=== PATIENT | female | born 1995 | race African-American/Black ===

== ENCOUNTER 2016-12-14 10:53 | Emergency (ER) | payer SELFPAY ==
[~2016-12-14] VITALS: Ht 157.5 cm; Wt 50.0 kg
[2016-12-14 10:55] VITALS: BP 116/65; PULSE 110; RESP 24; TEMP 98.2; O2SAT 93
--- NOTE | 2016-12-14 11:08 | PD ---
HPI Chief Complaint: Abdominal Pain Time Seen by Provider: 11:07 Travel History International Travel<30 days: No Contact w/Intl Traveler<30days: No Traveled to known affect area: No History of Present Illness HPI 21-year-old female came to the emergency room with history of being sick for past couple days with "flulike symptoms"which upon asking she described them as fever, headache some sneezing and runny nose. Her roommate was diagnosed with influenza. However this morning when she woke up she started getting severe lower abdominal pain. Seems quite uncomfortable because of the pain. She has been nauseous and vomited couple times yesterday and before. No vomiting today. The pain in her suprapubic area. She denied of any foul smelling discharge. Said there was a chance she could be . She was walking hunched over since standing straight walking she said was hurting. Vital signs were otherwise stable. [facility] Past Medical History Narrative Medical List of her past medical history as reviewed from the nursing note. Anemia: Yes Asthma: Yes ?: Unknown LMP: 11/21/16 Social History Alcohol Use: No (DENIES) Tobacco Use: No Substance Use: No (DENIES) Allergies-Medications (Allergen,Severity, Reaction): Coded Allergies: No Known Allergies (Unverified , 12/14/16) Comments No known drug allergies. Reported Meds & Prescriptions Reported Meds & Active Scripts Active Sulfamethoxazole-Trimethoprim Liq 200-40 Mg/5 Ml Susp 20 Ml PO Q12H 7 Days Sulfamethoxazole-Trimethoprim Liq 200-40 Mg/5 Ml Susp 20 Ml PO ONCE Narrative Medication List of her home medications reviewed from the nursing note. Review of Systems Except as stated in HPI: all other systems reviewed are Neg Physical Exam Narrative GENERAL: Awake, alert, anxious, moderate to significant distress SKIN: Warm and dry. HEAD: Atraumatic. Normocephalic. EYES: Pupils equal and round. No scleral icterus. No injection or drainage. ENT: No nasal bleeding or discharge. Mucous membranes pink and moist. NECK: Trachea midline. No JVD. CARDIOVASCULAR: Regular rate and rhythm. No murmur appreciated. RESPIRATORY: No accessory muscle use. Clear to auscultation. Breath sounds equal bilaterally. GASTROINTESTINAL: Abdomen soft, non-tender, nondistended. Hepatic and splenic margins not palpable. MUSCULOSKELETAL: No obvious deformities. No clubbing. No cyanosis. No edema. NEUROLOGICAL: Awake and alert. No obvious cranial nerve deficits. Motor grossly within normal limits. Normal speech. PSYCHIATRIC: Appropriate mood and affect; insight and judgment normal. Data Data Last Documented VS Vital Signs Date Time Temp Pulse Resp B/P Pulse Ox O2 Delivery O2 Flow Rate FiO2 12/14/16 12:30 77 18 108/55 100 Room Air 12/14/16 10:55 98.2 Orders Complete Blood Count With Diff (12/14/16 11:11) Lipase (12/14/16 11:11) Urinalysis - C+S If Indicated (12/14/16 11:11) Iv Access Insert/Monitor (12/14/16 11:11) Ecg Monitoring (12/14/16 11:11) Oximetry (12/14/16 11:11) Ondansetron Inj (Zofran Inj) (12/14/16 11:15) Sodium Chlor 0.9% 1000 Ml Inj (Ns 1000 M (12/14/16 11:11) Sodium Chloride 0.9% Flush (Ns Flush) (12/14/16 11:15) Ketorolac Inj (Toradol Inj) (12/14/16 11:15) Ed Urine Pregnancytest Poc (12/14/16 11:11) Influenzae A/B Antigen (12/14/16 11:12) Nitrofurantoin Monohyd Macrocr (Macrobid (12/14/16 12:30) Sulfamet-Trimet 800-160 Mg Liq (Bactrim (12/14/16 12:30) Labs Laboratory Tests Test 12/14/16 12/14/16 11:20 11:23 White Blood Count 5.0 TH/MM3 Red Blood Count 4.12 MIL/MM3 Hemoglobin 11.2 GM/DL Hematocrit 33.1 % Mean Corpuscular Volume 80.3 FL Mean Corpuscular Hemoglobin 27.2 PG Mean Corpuscular Hemoglobin 33.9 % Concent Red Cell Distribution Width 14.4 % Platelet Count 333 TH/MM3 Mean Platelet Volume 7.7 FL Neutrophils (%) (Auto) 68.7 % Lymphocytes (%) (Auto) 22.5 % Monocytes (%) (Auto) 7.6 % Eosinophils (%) (Auto) 0.7 % Basophils (%) (Auto) 0.5 % Neutrophils # (Auto) 3.4 TH/MM3 Lymphocytes # (Auto) 1.1 TH/MM3 Monocytes # (Auto) 0.4 TH/MM3 Eosinophils # (Auto) 0.0 TH/MM3 Basophils # (Auto) 0.0 TH/MM3 CBC Comment DIFF FINAL Differential Comment Lipase 126 U/L Urine Color YELLOW Urine Turbidity CLOUDY Urine pH 5.5 Urine Specific Gardner 1.034 Urine Protein 30 mg/dL Urine Glucose (UA) NEG mg/dL Urine Ketones TRACE mg/dL Urine Occult Blood LARGE Urine Nitrite NEG Urine Bilirubin NEG Urine Urobilinogen LESS THAN 2.0 MG/DL Urine Leukocyte Esterase TRACE Urine RBC 5 /hpf Urine Amorphous Sediment MOD Urine Bacteria FEW /hpf Urine Mucus MANY /lpf Microscopic Urinalysis Comment CULT NOT INDICATED MDM Medical Decision Making Medical Screen Exam Complete: Yes Emergency Medical Condition: Yes Medical Record Reviewed: Yes Differential Diagnosis UTI, ruptured ovarian cyst, PID Narrative Course 12:27 PM test results are within normal limit. Patient has a grossly infected UTI. I've ordered initially Macrobid but patient wanted something and liquids since she cannot swallow pills. I've changed to liquid Bactrim. I will discharge her home on liquid Bactrim. Patient was medicated for pain with Toradol IV. Seems little more comfortable now. Procedures EKG Prior to Arrival: No Diagnosis Primary Impression: UTI (urinary tract infection) Qualified Code: N39.0 - Urinary tract infection without hematuria, site unspecified Additional Impression: Pelvic pain Referrals: Primary Care Physician 3 days Additional Instructions: Please return to the ER if the condition worsens or any other new concerns. Otherwise follow-up with your primary care. Take the medications as per the prescription direction. Med/Other Pt SpecificInfo: Prescription(s) given Scripts Sulfamethoxazole-Trimethoprim Liq 200-40 Mg/5 Ml Susp20 Ml PO Q12H 7 Days Ref 0 Prov:Ishmael Rouse MD 12/14/16 Sulfamethoxazole-Trimethoprim Liq 200-40 Mg/5 Ml Susp20 Ml PO ONCE #20 ML Ref 0 Prov:sIhmael Rouse MD 12/14/16 Disposition: 01 DISCHARGE HOME Condition: Stable Ishmael Rouse MD Dec 14, 2016 11:08
[2016-12-14] MEDS ORDERED: SODIUM CHLOR 0.9% 1000 ML INJ 1,000 ML IV SCH (11:11)
[2016-12-14] MEDS ORDERED: KETOROLAC TROMETHAMINE 30 MG/ML (IVP) VIAL IVP ONE (11:15)
[2016-12-14] MEDS ORDERED: ONDANSETRON HCL 4 MG/2 ML VIAL IVP ONE (11:15)
[2016-12-14] MEDS ORDERED: SODIUM CHLORIDE 0.9% FLUSH 5 ML FLUSH IVF PRN (11:15)
[2016-12-14 11:38] LABS: AUTOMATED NEUTROPHIL # 3.4 TH/MM3 (1.8-7.7); BASOPHIL % 0.5 % (0.0-2.0); EOSINOPHIL % 0.7 % (0.0-4.0); HEMATOCRIT 33.1 % (35.0-46.0); HEMO FLAGS DIFF FINAL; LYMPH % 22.5 % (9.0-44.0); LYMPHOCYTE # 1.1 TH/MM3 (1.0-4.8); MEAN CELL VOLUME 80.3 FL (80.0-100.0); MEAN CORPUSCULAR HEMOGLOBIN 27.2 PG (27.0-34.0); MEAN CORPUSCULAR HGB CONC 33.9 % (32.0-36.0); MONO % 7.6 % (0.0-8.0); NEUT % 68.7 % (16.0-70.0); PLATELET COUNT 333 TH/MM3 (150-450); RED BLOOD COUNT 4.12 MIL/MM3 (4.00-5.30); RED CELL DISTRIBUTION WIDTH 14.4 % (11.6-17.2)
[2016-12-14 11:49] LABS: BACTERIA, URINE FEW /hpf; BLOOD, URINE LARGE (NEG); COMMENT (UR) CULT NOT INDICATED; CULTURE IF INDICATED CULT NOT INDICATED; GLUCOSE,URINE NEG (NEG); KETONE, URINE TRACE mg/dL (NEG); MUCUS URINE MANY /lpf (OCC); NITRITE,URINE NEG (NEG); PH, URINE 5.5 (5.0-8.5); URINE COLOR YELLOW (YELLW/STRAW)
[2016-12-14 12:30] VITALS: BP 108/55; PULSE 77; RESP 18; O2SAT 100
[2016-12-14] MEDS ORDERED: NITROFURANTOIN MONOHYD MACROCR 100 MG CAP PO ONE (12:30)
[2016-12-14] MEDS ORDERED: SULFAMETHOXAZOLE-TRIMETHOPRIM 800-160 MG/20 ML UDC PO ONE (12:30)
[2016-12-14] MEDS ORDERED: SULF20OR2 PO ×2 (12:31)
== END 2016-12-14 13:00 | disposition home or self-care (01) ==
LOC: NEPC 10:53
DX: N39.0 Urinary tract infection, site not specified (principal)
CPT/HCPCS: 81001; 83690; 84703; 85025; 87804; 96374; 96375; 99284; J1885; J2405; J7030